=== PATIENT | male | born 1960 | race Two or more races ===

== ENCOUNTER 2019-01-13 10:42 | Emergency (ER) | payer MEDICAID, OTHER ==
[~2019-01-13] VITALS: Ht 172.7 cm; Wt 90.7 kg
[2019-01-13] MEDS ORDERED: NOREPINEPHRINE 8 MG/250ML KIT 250 ML IV ONE (11:03)
[2019-01-13 11:09] VITALS: BP 50/25
[2019-01-13] MEDS ORDERED: EPINEPHrine HCL INJECTION 4 MG in SODIUM CHL 0.9% 250 ML IV ONE (11:15)
== END 2019-01-13 18:26 | disposition expired ==
LOC: EDBD 10:42 → ER 10:42
DX: I46.9 Cardiac arrest, cause unspecified (principal); S09.90XA Unspecified injury of head, initial encounter; V86.55XA Driver of 3- or 4- wheeled all-terrain vehicle (ATV) injured in nontraffic accident, initial encounter; Y93.89 Activity, other specified; Y99.8 Other external cause status; Y92.89 Other specified places as the place of occurrence of the external cause
CPT/HCPCS: 31500; 36600; 51702; 82805; 92950; 93005; 94761; 99285; J0171; J7050